=== PATIENT | female | born 1945 | race Caucasian/White ===

== ENCOUNTER 2017-09-04 11:23 | Emergency (ER) | payer OTHER ==
[~2017-09-04] VITALS: Ht 165.1 cm; Wt 96.2 kg
[2017-09-04] MEDS ORDERED: LANTUS SOL100 UNIT/1 (12:46)
[2017-09-04] MEDS ORDERED: TOPROL XL100 M1 (12:46)
== END 2017-09-05 15:21 | disposition home or self-care (01) ==
LOC: ER 11:23
DX: R00.2 Palpitations (principal); I48.91 Unspecified atrial fibrillation; E11.9 Type 2 diabetes mellitus without complications; I10 Essential (primary) hypertension

== ENCOUNTER → 2017-09-04 | Day surgery (SDC) | payer OTHER ==
[~2017-09-04] MED LIST: LANTUS SOL100 UNIT/1; TOPROL XL100 M1
== END | disposition home or self-care (01) ==
LOC: ADM 08-26 10:30 → AMB-ENDOS 07:38
DX: K63.5 Polyp of colon (principal); R07.9 Chest pain, unspecified; R00.0 Tachycardia, unspecified; Z53.09 Procedure and treatment not carried out because of other contraindication